=== PATIENT | female | born 1960 | race Caucasian/White ===

== ENCOUNTER 2017-04-27 15:13 | Emergency (ER) | payer OTHER ==
[~2017-04-27] VITALS: Ht 157.5 cm; Wt 51.5 kg
[~2017-04-27 15:13] MED LIST: ALPR0.254 PO; BENA10TA48 PO; BUTA1CAP38 PO; DILT240C79 PO; GEMF600T PO; LEVE-5 PO; MECL-77 PO
[2017-04-27 15:17] VITALS: Ht 157.5 cm; Wt 51.5 kg
[2017-04-27] MEDS ORDERED: ASPIRIN 81 MG TAB PO STA (16:27)
[2017-04-27] MEDS ORDERED: NITROGLYCERIN 2% 1 GM OINT PKT TD STA (16:27)
[2017-04-27] MEDS ORDERED: NITROGLYCERIN (SL) 0.4 MG TAB SL PRN (16:30)
--- NOTE | 2017-04-27 16:48 | RADRPT ---
PROCEDURE: XR Chest. CLINICAL INDICATION: Chest Pain. TECHNIQUE: Single frontal view of the chest was obtained COMPARISON: Chest x-ray FINDINGS: The cardiomediastinal silhouette is within normal limits. No pneumothorax, pleural effusion, or consolidation is identified. There is no evidence of pulmonary vascular congestion. There are mild degenerative changes of the visualized spine. There are surgical clips are suggestive of prior cholecystectomy. IMPRESSION: No evidence of an acute cardiopulmonary process. RPTAT: QQ Physician Kayla Date Time Electronically viewed and signed by Simran Noe Physician on 04/27/2017 16:48 RC/
[2017-04-27 17:08] LABS: BASOPHILS % 0.1 % (0.0-2.0); HEMATOCRIT 42.5 % (37.0-47.0); LYMPHOCYTES # 1.8 10^3/ul (0.8-2.9); MEAN CORPUSCULAR HEMOGLOBIN 32.2 pg (29.0-33.0); MEAN CORPUSCULAR HGB CONC 32.9 g/dl (32.0-37.0); MEAN CORPUSCULAR VOLUME 97.7 fl (82.0-101.0); MEAN PLATELET VOLUME 10.2 fl (7.4-10.4); MONOCYTE # 0.5 10^3/ul (0.3-0.9); MONOCYTES % 2.8 % (0.0-11.0); NEUTROPHIL # 15.1 10^3/ul (1.6-7.5); NEUTROPHILS % 86.5 % (39.0-77.0); PLATELET COUNT 217 10^3/UL (140-415); RED BLOOD COUNT 4.35 10^6/ul (4.20-5.40); RED CELL DISTRIBUTION WIDTH 13.9 % (11.5-14.5); WHITE BLOOD COUNT 17.4 10^3/ul (4.8-10.8)
[2017-04-27] MEDS ORDERED: BENA40TA41 PO (17:15)
[2017-04-27] MEDS ORDERED: ALPR0.5T6 PO (17:15)
[2017-04-27 17:17] LABS: PARTIAL THROMBOPLASTIN TIME 24.7 Sec (25.0-35.0); PROTIME 13.2 Sec (12.2-14.2)
[2017-04-27] MEDS ORDERED: LEVO500T10 PO (17:17)
[2017-04-27] MEDS ORDERED: PRED10TA PO (17:18)
--- NOTE | 2017-04-27 17:18 | ERD ---
ER Documentation Chief Complaint Date/Time DATE: 04/27/17 TIME: 17:11 Chief Complaint Complains of cheat pain and SOB x 4 days HPI 57-year-old woman here for intermittent chest pain and shortness of breath 2 weeks after receiving contrast dye for CT angiogram of the brain 2 weeks ago. She states she felt similar after undergoing chemicals cardiac stress test in the past but those symptoms resolved spontaneously after a few days. She states she has sharp nonexertional nonradiating chest pain and intermittent shortness of breath. She has had no cough, no calf or leg swelling, no vomiting or diarrhea, no headache or blurry vision. Her primary care physician suspected she had an allergic reaction to contrast dry and has been treating her with glucocorticoids and other medications as an outpatient to help with symptoms. ROS All systems reviewed and are negative except as per history of present illness. Medications Home Meds Active Scripts Ibuprofen* (Ibuprofen*) 600 Mg Tablet, 600 MG PO Q8 for PAIN AND/OR INFLAMMATION , #30 TAB Prov:KYLEIGH CHAUHAN MD 04/27/17 Reported Medications Roflumilast (Daliresp) 500 Mcg Tablet, 500 MCG PO DAILY, TAB 04/27/17 Tiotropium Brandon* (Spiriva*) 18 Mcg Cap.w.dev, 1 CAP INHALATION BID, #30 CAP 04/27/17 Prednisone* (Prednisone*) 10 Mg Tab, 20 MG PO DAILY, TAB START DATE 04/23/17 FOR 10 DAYS 04/27/17 Levofloxacin* (Levofloxacin*) 500 Mg Tablet, 500 MG PO DAILY, TAB START DATE 04/23/17 FOR 10 DAYS 04/27/17 Benazepril Hcl* (Benazepril Hcl*) 40 Mg Tablet, 40 MG PO DAILY, #30 TAB 04/27/17 Alprazolam* (Alprazolam*) 0.5 Mg Tablet, 0.5 MG PO DAILY Y for ANXIETY, TAB 04/27/17 Diltiazem Hcl* (Cardizem CD*) 240 Mg Cap.sr.24h, 240 MG PO DAILY, #30 CAP 08/09/16 Rxfdztqooq-Sonjytskhrvbw-Nmblxnsf* (Fioricet*) 50-300-40 Mg Capsule, 1 CAP PO DAILY Y for HEADACHE, CAP 08/09/16 Discontinued Reported Medications Alprazolam* (Alprazolam*) 0.25 Mg Tablet, 0.25 MG PO QHS Y for ANXIETY, TAB 08/09/16 Gemfibrozil* (Lopid*) 600 Mg Tablet, 600 MG PO QHS, TAB 08/09/16 Benazepril Hcl* (Benazepril Hcl*) 10 Mg Tablet, 10 MG PO DAILY, #30 TAB 08/09/16 Discontinued Scripts Meclizine Hcl* (Meclizine Hcl*) 25 Mg Tablet, 25 MG PO TID Y for dizziness, #60 TAB Prov:MARY BAKER MD 08/12/16 Levetiracetam* (Keppra*) 500 Mg Tablet, 500 MG PO BID, #60 TAB Prov:MARY BAKER MD 08/12/16 Allergies Allergies: Coded Allergies: atenolol (Verified Allergy, Unknown, 04/27/17) Uncoded Allergies: IV CONTRAST (Allergy, Unknown, 04/27/17) PMhx/Soc Brain aneurysm post surgical clipping, previous CO, hypertension History of Surgery: No Anesthesia Reaction: No Hx Neurological Disorder: No Hx Respiratory Disorders: No Hx Cardiac Disorders: Yes (hx mi in 2011 htn and hld) Hx Psychiatric Problems: No Hx Miscellaneous Medical Probl: No Hx Alcohol Use: No Hx Substance Use: No Hx Tobacco Use: No Smoking Status: Never smoker FmHx Family History: No diabetes Physical Exam Vitals Vital Signs Date Time Temp Pulse Resp B/P Pulse Ox O2 Delivery O2 Flow Rate FiO2 04/27/17 19:34 88 20 128/77 97 Room Air 04/27/17 16:54 Nasal Cannula 04/27/17 15:17 98.3 88 20 127/71 97 Physical Exam GENERAL: Well-developed, well-nourished, well-hydrated, in no apparent distress , looks nontoxic in appearance HEENT: Moist mucous membranes, pink conjunctiva, no cervical spine tenderness or step-off deformities, no goiter, no jaundice or icterus, extraocular movements intact without pain. No submandibular induration, and no pharyngeal erythema NEURO: Alert and oriented 3, cranial nerves II through XII intact bilaterally, pupils equal round reactive to light, no focal deficits or facial asymmetry, sensation intact distally Strength 5/5 in upper and lower extremities bilaterally CARDIAC: Regular rate and rhythm, no murmurs rubs or gallops LUNGS: Clear bilaterally no wheezing crackles or stridor ABDOMEN: Soft nontender, no guarding, no rigidity, no rebound, no psoas sign no obturator sign. Normoactive bowel sounds SKIN: Warm and dry to touch, no abrasions, contusions, or hematomas, no lacerations, no ecchymosis, no target lesions, and without ulcers EXTREMITIES: No clubbing cyanosis or edema, calves are bilaterally symmetrical, no Homans sign, no popliteal cord sign. Distal pulses equal and bilateral PSYCH: Normal affect without agitation or irritability Result Diagram: 04/27/17 1645 04/27/17 1645 Results 24 hrs Laboratory Tests Test 04/27/17 16:45 White Blood Count 17.410^3/ul Red Blood Count 4.3510^6/ul Hemoglobin 14.0g/dl Hematocrit 42.5% Mean Corpuscular Volume 97.7fl Mean Corpuscular Hemoglobin 32.2pg Mean Corpuscular Hemoglobin Concent 32.9g/dl Red Cell Distribution Width 13.9% Platelet Count 38093^3/UL Mean Platelet Volume 10.2fl Neutrophils % 86.5% Lymphocytes % 10.0% Monocytes % 2.8% Eosinophils % 0.0% Basophils % 0.1% Nucleated Red Blood Cells % 0.0/100WBC Neutrophils # 15.110^3/ul Lymphocytes # 1.810^3/ul Monocytes # 0.510^3/ul Eosinophils # 0.010^3/ul Basophils # 0.010^3/ul Nucleated Red Blood Cells # 0.010^3/ul Prothrombin Time 13.2Sec Prothrombin Time Ratio 1.0 INR International Normalized Ratio 1.00 Activated Partial Thromboplast Time 24.7Sec Sodium Level 144mmol/L Potassium Level 4.1mmol/L Chloride Level 104mmol/L Carbon Dioxide Level 24mmol/L Anion Gap 20 Blood Urea Nitrogen 14mg/dl Creatinine 0.56mg/dl Glucose Level 127mg/dl Calcium Level 9.3mg/dl Troponin I < 0.012ng/ml Thyroid Stimulating Hormone (TSH) 0.408MIU/L Free Thyroxine 0.82ng/dl Free Triiodothyronine (T3) pg/mL 2.93pg/ml Current Medications Medications (Trade) Dose Ordered Sig/Jony Route PRN Reason Start Time Stop Time Status Last Admin Dose Admin Aspirin (Aspirin) 162 mg ONCE STAT PO 04/27/17 16:27 04/27/17 16:35 DC Nitroglycerin (Nitroglycerin 2% Oint) 1 inch ONCE STAT TD 04/27/17 16:27 04/27/17 16:33 DC Nitroglycerin (Nitroglycerin (Sl Tab) 0.4 Mg) 1 tab Q5M UP TO 3 DOSES PRN SL CHEST PAIN 04/27/17 16:30 04/27/17 16:33 DC Ketorolac Tromethamine (Toradol) 15 mg ONCE STAT IV 04/27/17 19:09 04/27/17 19:10 DC 04/27/17 19:18 Procedures/MDM IV line was established patient was placed on quality assurance monitor rhythm strip revealed a sinus rhythm at about 80 bpm with upright P and T waves. Patient was afebrile. Chest X-ray 1V Interpreted by me: Soft Tissue: No acute abnormalities Bones: No acute abnormalities Mediastinum/Cardiac Silhouette/Lungs: No acute abnormalities EKG performed, read by me: 81 bpm, normal sinus rhythm, normal axis, no acute ST segment changes, narrow QRS complex, with good R-wave progression in precordial leads. EKG #2 performed about 2 hours after the first 1 reveals a normal sinus rhythm at 65 bpm, normal axis, narrow QRS complex, no concerning ST elevations or depressions noted. Patient received Toradol 50 mg IV 1 with resolution of her symptoms. Her oxygen saturation throughout her stay was 100% on room air normal. CBC reveals a leukocytosis of 17, which may be secondary to recent glucocorticoid therapy as she has no signs of infection. Electrolytes normal, troponin negative. TSH was low although free T3 free T4 are within normal limits, further testing by PMD recommended. Differential diagnoses considered, included but not limited to acute coronary syndrome, pulmonary embolism, aortic dissection, abdominal aortic aneurysm, sepsis, stroke, meningitis, encephalitis, pneumonia, appendicitis, cholecystitis , bowel obstruction, pyelonephritis, nephrolithiasis, cystitis, as well as metabolic, hematologic, and electrolyte abnormalities. As well as abscess, cellulitis, fractures, and dislocations. Patient feels much better at this time, and vital signs are normal, symptoms have improved. I did give strict instructions to return to the ED if symptoms continue or worsen, patient will otherwise follow-up with primary care physician. Patient understood instructions and agreed to plan. Disclaimer: Inadvertent spelling and grammatical errors are likely due to EHR/ dictation software use and do not reflect on the overall quality of patient care. Also, please note that the electronic time recorded on this note does not necessarily reflect the actual time of the patient encounter. Departure Diagnosis: Primary Impression: Chest pain Chest pain type: unspecified Qualified Code: R07.9 - Chest pain, unspecified type Additional Impressions: Dizziness Weakness Allergic reaction Encounter type: initial encounter Qualified Code: T78.40XA - Allergic reaction, initial encounter Condition: KYLEIGH Steele MD Apr 27, 2017 17:18
[2017-04-27] MEDS ORDERED: TIOT18CA INHALATION (17:23)
[2017-04-27] MEDS ORDERED: ROFL500T6 PO (17:23)
[2017-04-27 17:56] LABS: ANION GAP 20 (8-16); BLOOD UREA NITROGEN 14 mg/dl (7-20); CALCIUM 9.3 mg/dl (8.4-10.2); CARBON DIOXIDE 24 mmol/L (21-31); CHLORIDE 104 mmol/L (97-110); CREATININE 0.56 mg/dl (0.44-1.00); GLUCOSE 127 mg/dl (70-220); POTASSIUM 4.1 mmol/L (3.5-5.1); SODIUM 144 mmol/L (135-144)
[2017-04-27 18:09] LABS: TROPONIN-I < 0.012 ng/ml (0.00-0.12)
[2017-04-27 18:25] LABS: THYROID STIMULATING HORMONE 0.408 MIU/L (0.465-4.680)
[2017-04-27] MEDS ORDERED: IBUP-1542 PO (18:33)
[2017-04-27] MEDS ORDERED: KETOROLAC 15 MG INJ IV STA (19:09)
[2017-04-27 19:34] VITALS: BP 128/77; PULSE 88; RESP 20
[2017-04-28 12:04] LABS: FREE T3 2.93 pg/ml (2.77-5.27)
== END 2017-04-27 19:36 | disposition home or self-care (01) ==
LOC: E/R 15:13
DX: R07.9 Chest pain, unspecified (principal); R42 Dizziness and giddiness; R53.1 Weakness; I10 Essential (primary) hypertension; R06.02 Shortness of breath
CPT/HCPCS: 36415; 71010; 80048; 84439; 84443; 84481; 84484; 85025; 85610; 85730; 93005; 96374; J1885; Z7502

== ENCOUNTER 2017-10-14 19:55 | Inpatient (IN) | END 2017-10-17 16:29 | disposition home or self-care (01) | DRG 552 ==

== ENCOUNTER 2018-12-11 14:12 | Emergency (ER) | payer OTHER ==
[~2018-12-11] VITALS: Ht 160 cm; Wt 50.1 kg
[~2018-12-11 14:12] MED LIST changes: -ALPR0.254 PO; +ALPR0.5T6 PO; -BENA10TA48 PO; +BENA40TA56 PO; -DILT240C79 PO; +DILT240T PO; +GABA300C16 PO; -GEMF600T PO; -LEVE-5 PO; -MECL-77 PO; +OMEP40CA6 PO
[2018-12-11 14:16] VITALS: Ht 160 cm; Wt 50.1 kg
--- NOTE | 2018-12-11 17:33 | ERD ---
ER Documentation Chief Complaint Chief Complaint CP since this AM ; took ntg and aspirin this AM; not in distress HPI 58-year-old woman with multiple medical conditions including history of IA presents with substernal chest discomfort beginning early this morning, nonradiating and nonexertional. She denies obvious precipitating or alleviating factors. She has had similar symptoms in the past. She denies fevers or chills, no loss of consciousness, no headache or blurry vision. She uses aspirin every other day and took nitroglycerin prior to arrival. She states her symptoms have improved. ROS All systems reviewed and are negative except as per history of present illness. Medications Home Meds Active Scripts Gabapentin* (Gabapentin*) 300 Mg Capsule, 300 MG PO QHS for 30 Days, #60 CAP Prov:CANDIS LOCO MD 10/17/17 Reported Medications Cegynbyfgb-Fyrxauqusholi-Lqtntity* (Fioricet*) 50-300-40 Mg Capsule, 1 CAP PO DAILY PRN for HEADACHE, CAP 10/14/17 Diltiazem Hcl* (Cardizem LA*) 240 Mg Tab.sr.24h, 240 MG PO DAILY, #30 TAB.SA 10/14/17 Omeprazole* (Omeprazole*) 40 Mg Capsule.dr, 40 MG PO DAILY, #30 CAP 10/14/17 Benazepril Hcl* (Benazepril Hcl*) 40 Mg Tablet, 40 MG PO DAILY, #30 TAB 04/27/17 Alprazolam* (Alprazolam*) 0.5 Mg Tablet, 0.5 MG PO DAILY PRN for ANXIETY, TAB 04/27/17 Allergies Allergies: Coded Allergies: Iodine and Iodide Containing Produc (Verified Allergy, Unknown, 10/14/17) atenolol (Verified Allergy, Unknown, 04/27/17) PMhx/Soc history of ruptured brain aneurysm and surgery at [facility] in 2008, history of nonobstructive coronary artery disease and IA, migraine headaches times 40 years, anxiety, chronic neck pain, hypertension, history of LVEF of 60%, osteoarthritis mild central and foraminal canal stenosis of the spinal column between C5 through C7 History of Surgery: No Anesthesia Reaction: No Hx Neurological Disorder: No Hx Respiratory Disorders: No Hx Cardiac Disorders: Yes (hx mi in 2011 htn and hld) Hx Psychiatric Problems: No Hx Miscellaneous Medical Probl: Yes (CVA, anurysm 2017) Hx Alcohol Use: No Hx Substance Use: No Hx Tobacco Use: No FmHx Family History: diabetes Physical Exam Vitals Vital Signs Date Temp Pulse Resp B/P (MAP) Pulse Ox O2 O2 Flow FiO2 Time Delivery Rate 12/11/18 98.3 97 20 149/84 7 14:16 (105) Physical Exam GENERAL: Well-developed, well-nourished, well-hydrated, in no apparent distress, looks nontoxic in appearance HEENT: Moist mucous membranes, pink conjunctiva, no cervical spine tenderness or step-off deformities, no goiter, no jaundice or icterus, extraocular movements intact without pain. No submandibular induration, and no pharyngeal erythema NEURO: Alert and oriented 3, cranial nerves II through XII intact bilaterally, pupils equal round reactive to light, no focal deficits or facial asymmetry, sensation intact distally Strength 5/5 in upper and lower extremities bilaterally CARDIAC: Regular rate and rhythm, no murmurs rubs or gallops LUNGS: Clear bilaterally no wheezing crackles or stridor ABDOMEN: Soft nontender, no guarding, no rigidity, no rebound, no psoas sign no obturator sign. Normoactive bowel sounds SKIN: Warm and dry to touch, no abrasions, contusions, or hematomas, no lace rations, no ecchymosis, no target lesions, and without ulcers EXTREMITIES: No clubbing cyanosis or edema, calves are bilaterally symmetrical, no Homans sign, no popliteal cord sign. Distal pulses equal and bilateral PSYCH: Normal affect without agitation or irritability Result Diagram: 12/11/18 1808 12/11/18 1808 Results 24 hrs Laboratory Tests Test 12/11/18 18:08 White Blood Count 7.3 10^3/ul Red Blood Count 4.31 10^6/ul Hemoglobin 14.3 g/dl Hematocrit 43.2 % Mean Corpuscular Volume 100.2 fl Mean Corpuscular Hemoglobin 33.2 pg Mean Corpuscular Hemoglobin Concent 33.1 g/dl Red Cell Distribution Width 13.2 % Platelet Count 237 10^3/UL Mean Platelet Volume 10.0 fl Immature Granulocytes % 0.300 % Neutrophils % 68.6 % Lymphocytes % 25.0 % Monocytes % 5.4 % Eosinophils % 0.4 % Basophils % 0.3 % Nucleated Red Blood Cells % 0.0 /100WBC Immature Granulocytes # 0.020 10^3/ul Neutrophils # 5.0 10^3/ul Lymphocytes # 1.8 10^3/ul Monocytes # 0.4 10^3/ul Eosinophils # 0.0 10^3/ul Basophils # 0.0 10^3/ul Nucleated Red Blood Cells # 0.0 10^3/ul Sodium Level 143 mmol/L Potassium Level 3.8 mmol/L Chloride Level 103 mmol/L Carbon Dioxide Level 26 mmol/L Anion Gap 14 Blood Urea Nitrogen 14 mg/dl Creatinine 0.49 mg/dl Est Glomerular Filtrat Rate mL/min > 60 mL/min Glucose Level 109 mg/dl Calcium Level 9.1 mg/dl Total Bilirubin 0.2 mg/dl Direct Bilirubin 0.00 mg/dl Indirect Bilirubin 0.2 mg/dl Aspartate Amino Transf (AST/SGOT) 26 IU/L Alanine Aminotransferase (ALT/SGPT) 22 IU/L Alkaline Phosphatase 81 IU/L Troponin I < 0.012 ng/ml Total Protein 8.0 g/dl Albumin 4.6 g/dl Globulin 3.40 g/dl Albumin/Globulin Ratio 1.35 Lipase 81 U/L Current Medications Medications Dose Sig/Jony Start Time Status Last (Trade) Ordered Route PRN Stop Time Admin Dose Reason Admin Sodium 500 ml @ Q1H STAT 12/11/18 DC 12/11/18 Chloride 500 mls/hr IV 17:35 18:15 12/11/18 18:34 0.5 mg ONCE STAT 12/11/18 DC 12/11/18 Hydromorphone IV 17:35 18:14 HCl 12/11/18 17:43 (Dilaudid) Ondansetron 4 mg ONCE STAT 12/11/18 DC 12/11/18 HCl (Zofran IV 17:35 18:14 Inj) 12/11/18 17:43 Procedures/MDM IV line was established patient was placed on gambling monitor rhythm strip revealed a sinus rhythm at about 70 bpm with upright P and T waves. Patient was afebrile EKG performed, read by me revealed a normal sinus rhythm at 69 bpm, left axis deviation, narrow QRS complex, no concerning ST elevations or depressions One AP view of the chest performed, read by me reveals no acute infiltrates, normal mediastinum, sharp costophrenic and cardiac borders, no air under the diaphragm. Otherwise unremarkable chest x-ray. I administered 0.5 mg hydromorphone IV x1 and 500 cc normal saline IV. CBC and electrolytes are normal, liver function tests are normal, troponin was negative Repeat EKG performed, read by me revealed a normal sinus rhythm at 63 bpm, normal axis, narrow QRS complex, no concerning ST elevations or depressions Patient chest pain has resolved and she feels much better, vital signs are normal and she will be discharged to follow-up with PMD. Differential diagnoses considered, included but not limited to acute coronary syndrome, pulmonary embolism, aortic dissection, abdominal aortic aneurysm, sepsis, stroke, meningitis, encephalitis, pneumonia, appendicitis, cholecystitis, bowel obstruction, pyelonephritis, nephrolithiasis, cystitis, as well as metabolic, hematologic, and electrolyte abnormalities. As well as abscess, cellulitis, fractures, and dislocations. Patient feels much better at this time, and vital signs are normal, symptoms have improved. I did give strict instructions to return to the ED if symptoms continue or worsen, patient will otherwise follow-up with primary care physician. Patient understood instructions and agreed to plan. Disclaimer: Inadvertent spelling and grammatical errors are likely due to EHR/dictation software use and do not reflect on the overall quality of patient care. Also, please note that the electronic time recorded on this note does not necessarily reflect the actual time of the patient encounter. Departure Diagnosis: Primary Impression: Chest pain Chest pain type: unspecified Qualified Codes: R07.9 - Chest pain, unspecified Condition: KYLEIGH Steele MD Dec 11, 2018 17:33
[2018-12-11] MEDS ORDERED: SOD CHLORIDE 0.9% 500 ML IV STA (17:35)
[2018-12-11] MEDS ORDERED: ONDANSETRON 4 MG INJ IV STA (17:35)
[2018-12-11] MEDS ORDERED: HYDROmorphONE 0.5 MG/0.5 ML SYG IV STA (17:35)
[2018-12-11 20:00] VITALS: BP 125/80; PULSE 79; RESP 20
== END 2018-12-11 20:05 | disposition home or self-care (01) ==
LOC: E/R 14:12
DX: R07.9 Chest pain, unspecified (principal); I25.2 Old myocardial infarction; I25.10 Atherosclerotic heart disease of native coronary artery without angina pectoris; I10 Essential (primary) hypertension; Z86.73 Personal history of transient ischemic attack (TIA), and cerebral infarction without residual deficits
CPT/HCPCS: 36415; 71045; 80053; 83690; 84484; 85025; 93005; 96374; 96375; J1170; J2405; J7040; Z7502

== ENCOUNTER 2019-06-05 07:24 | Emergency (ER) | payer OTHER ==
[~2019-06-05] VITALS: Ht 154.9 cm; Wt 48.7 kg
[~2019-06-05 07:24] MED LIST changes: +ACET500C5 PO; +BEN25 PO; +IBUP-1542 PO; +OMEP40CA38 PO; -OMEP40CA6 PO
[2019-06-05 07:27] VITALS: Ht 154.9 cm; Wt 48.7 kg
[2019-06-05] MEDS ORDERED: METOCLOPRAMIDE 10 MG INJ IV STA (07:49)
[2019-06-05] MEDS ORDERED: SUMATRIPTAN 25 MG TAB PO STA (07:49)
[2019-06-05] MEDS ORDERED: SOD CHLORIDE 0.9% 1,000 ML IV STA (07:49)
[2019-06-05] MEDS: KETOROLAC 30 MG INJ IV STA ×2 (08:04→08:14)
[2019-06-05] MEDS ORDERED: morphine 2 MG INJ IV STA (08:14)
[2019-06-05] MEDS ORDERED: DIPHENHYDRAMINE 25 MG CAP PO ONE (08:30)
[2019-06-05 09:28] VITALS: BP 110/62; PULSE 57; RESP 18
== END 2019-06-05 09:30 | disposition home or self-care (01) ==
LOC: FTE 07:24
DX: R51 Headache (principal); I10 Essential (primary) hypertension; I25.2 Old myocardial infarction; Z86.73 Personal history of transient ischemic attack (TIA), and cerebral infarction without residual deficits
CPT/HCPCS: 93005; 96374; 96375; J1885; J2270; J2765; J7030; Z7502; Z7610